=== PATIENT | female | born 1985 | race African-American/Black ===

== ENCOUNTER 2019-10-06 13:57 | Emergency (ER) | payer OTHER ==
[~2019-10-06] VITALS: Ht 160 cm; Wt 68.0 kg
[~2019-10-06 13:57] MED LIST: NOHOMEMEDICATIONS; NORCO 5-325 TA1 EACH PO; TRAMADOL 50 MG50 MG PO; ZOFRAN ODT4 MG PO
[2019-10-06] MEDS ORDERED: IBUPROFEN 800800 M1 PO (15:29)
[2019-10-06 15:39] VITALS: BP 110/87
== END 2019-10-06 15:40 | disposition home or self-care (01) ==
LOC: ER 13:57
DX: S83.8X2A Sprain of other specified parts of left knee, initial encounter (principal); Z88.1 Allergy status to other antibiotic agents; Z91.013 Allergy to seafood; W18.39XA Other fall on same level, initial encounter; Y92.89 Other specified places as the place of occurrence of the external cause; Y93.89 Activity, other specified; Y99.8 Other external cause status

== ENCOUNTER 2021-06-13 18:37 | Emergency (ER) | payer OTHER ==
[~2021-06-13] VITALS: Ht 162.6 cm; Wt 77.1 kg
[~2021-06-13 18:37] MED LIST changes: +IBUPROFEN 800800 M1 PO
[2021-06-13 19:23] LABS: HEMATOCRIT 36.2 % (37.0-47.0); MCHC 33.3 g/dL (28.0-37.0); MCV 84.2 fL (80.0-100.0); RBC 4.3 mil/uL (4.20-5.00); RDW 13.9 % (10.5-14.5); WBC 9.3 thou/uL (4.0-11.0)
[2021-06-13 19:25] LABS: CALCIUM 8.6 mg/dL (8.5-10.1); CREATININE 1.2 mg/dL (0.6-1.0); POTASSIUM 3.7 mmol/L (3.5-5.1)
[2021-06-13 19:31] LABS: ALBUMIN 3.9 g/dL (3.4-5.0); TOTAL BILIRUBIN 0.3 mg/dL (0.2-1.0); TOTAL PROTEIN 7.9 g/dL (6.4-8.2)
[2021-06-13] MEDS ORDERED: MEDROLDOSEPACK PO (21:03)
[2021-06-13] MEDS ORDERED: ZOFRAN ODT4 MG PO (21:03)
[2021-06-13 21:20] VITALS: BP 117/78
== END 2021-06-13 21:31 | disposition home or self-care (01) ==
LOC: ER 18:37
PROVIDERS: Nurse Practitioner Family
DX: T78.40XA Allergy, unspecified, initial encounter (principal); E86.0 Dehydration; R11.2 Nausea with vomiting, unspecified; Z88.1 Allergy status to other antibiotic agents; Z88.0 Allergy status to penicillin; X58.XXXA Exposure to other specified factors, initial encounter; Z20.822 Contact with and (suspected) exposure to COVID-19